=== PATIENT | female | born 1980 | race African-American/Black ===

== ENCOUNTER 2016-10-22 21:32 | Emergency (ER) | payer OTHER ==
[~2016-10-22] VITALS: Ht 160 cm; Wt 73.9 kg
[~2016-10-22 21:32] MED LIST: ATARAX,VISTARIL25 MG PO; TESSALON PERLE100 MG PO; TOPIRAMATE50 MG PO; TRAMADOL HCL50 MG PO; ULTRAM50 MG PO; VALTREX1000 MG PO; ZITHROMAX Z-PA250 MG PO; ZOFRAN4 MG PO
[2016-10-22 22:26] LABS: ADD MIUA? NO; BILIRUBIN NEGATIVE; BLOOD NEGATIVE; COLOR YELLOW ((YELLOW)); GLUCOSE (STRIP) NEGATIVE; KETONES NEGATIVE; LEUKOCYTES NEGATIVE; NITRITE NEGATIVE; PROTEIN (STRIP) NEGATIVE; SPECIFIC GRAVITY 1.019 (1.000-1.030); UCUL ADDED? NO; UROBILINOGEN 0.2 MG/DL (0.2-1.0)
[2016-10-22 22:28] LABS: HEMATOCRIT 35.7 % (36.0-46.0); MCH 28.1 PG (29.0-34.0); MCHC 31.9 G/DL (30.0-36.0); MCV 87.9 FL (83-99); MEAN PLAT.VOLUME 9.2 uM^3 (9.5-12.4); PLATELET COUNT 208 K/uL (156-360); RBC DIS.WIDTH-CV 12.4 % (11.8-14.6); RBC DIS.WIDTH-SD 39.4 % (39-53); RED BLOOD COUNT 4.06 M/uL (3.80-5.20); WHITE BLOOD COUNT 6.2 K/uL (4.1-10.2)
[2016-10-23 01:18] VITALS: BP 125/69
== END 2016-10-23 01:19 | disposition home or self-care (01) ==
LOC: EME 21:32
DX: O20.9 Hemorrhage in early pregnancy, unspecified (principal); Z3A.10 10 weeks gestation of pregnancy
CPT/HCPCS: 76801; 81003; 84702; 85027; 99281; 99284

== ENCOUNTER 2017-05-16 08:17 | Inpatient (IN) | payer OTHER ==
[~2017-05-16] VITALS: Ht 157.5 cm; Wt 85.9 kg
[2017-05-16] VITALS (15 sets, daily range): BP systolic 69–127; BP diastolic 36–78
[~2017-05-16 08:17] MED LIST changes: +IRON325 M1 PO; +PRENATAL TABLE1 EAC3 PO; +VENTOLIN HFA18 GM IH
[2017-05-17] MEDS ORDERED: IBUPROFEN800 MG PO (00:04)
[2017-05-17] MEDS ORDERED: ENDOCET 5-3251 EACH PO (00:04)
[2017-05-17] MEDS ORDERED: DOCUSATE SODIU100 MG PO (00:04)
[2017-05-17 02:00] VITALS: BP 128/67
[2017-05-17 05:53] VITALS: BP 111/58
[2017-05-17 07:00] VITALS: BP 111/55
[2017-05-17 07:00] LABS: BASOPHIL (%) 0.2 % (0-1); EOSINOPHIL (%) 0 % (0-5); HEMATOCRIT 27.9 % (36.0-46.0); IMMATURE GRANULOCYTE (%) 0.8 % (0.0-0.7); LYMPHOCYTE (%) 8.9 % (15-42); LYMPHOCYTE COUNT 0.9 K/uL (1.0-2.8); MCH 27.7 PG (29.0-34.0); MCHC 31.2 G/DL (30.0-36.0); MCV 88.9 FL (83-99); MONOCYTE (%) 7.5 % (3-12); MONOCYTE COUNT 0.8 K/uL (0-0.8); NEUTROPHIL (%) 82.6 % (45-76); NEUTROPHIL COUNT 8.5 K/uL (1.8-6.4); PLATELET COUNT 131 K/uL (156-360); RBC DIS.WIDTH-CV 13.8 % (11.8-14.6); RBC DIS.WIDTH-SD 44.1 % (39-53); WHITE BLOOD COUNT 10.3 K/uL (4.1-10.2)
[2017-05-17 07:04] LABS: HEMOGLOBIN 8.7 G/DL (11.9-15.5); RED BLOOD COUNT 3.14 M/uL (3.80-5.20)
[2017-05-17 09:00] VITALS: BP 116/55
[2017-05-17 10:56] VITALS: BP 98/56
[2017-05-17 15:24] VITALS: BP 111/58
[2017-05-18 07:21] VITALS: BP 123/70
[2017-05-18 11:41] VITALS: BP 123/59
[2017-05-18 14:56] VITALS: BP 117/67
[2017-05-18 19:19] VITALS: BP 115/55
[2017-05-18 23:26] VITALS: BP 136/71
[2017-05-19 22:29] VITALS: BP 105/65
[2017-05-20 07:45] VITALS: BP 123/70
== END 2017-05-20 14:53 | disposition home or self-care (01) | DRG 766 ==
LOC: 2WEST 08:17 → 2SOUTH 15:35 → 2WEST 05-20 14:53
PROVIDERS: Obstetrics & Gynecology
PROC: 3E033VJ Introduction of Other Hormone into Peripheral Vein, Percutaneous Approach (ICD-10-PCS; principal; 2017-05-16)
PROC: 10D00Z1 Extraction of Products of Conception, Low, Open Approach (ICD-10-PCS; principal; 2017-05-16)
PROC: 10S0XZZ Reposition Products of Conception, External Approach (ICD-10-PCS; principal; 2017-05-16)
PROC: 00HU33Z Insertion of Infusion Device into Spinal Canal, Percutaneous Approach (ICD-10-PCS; principal; 2017-05-16)
PROC: 3E0R3BZ Introduction of Anesthetic Agent into Spinal Canal, Percutaneous Approach (ICD-10-PCS; principal; 2017-05-16)
PROC: 10907ZC Drainage of Amniotic Fluid, Therapeutic from Products of Conception, Via Natural or Artificial Opening (ICD-10-PCS; principal; 2017-05-16)
DX: O64.1XX0 Obstructed labor due to breech presentation, not applicable or unspecified (principal); O69.0XX0 Labor and delivery complicated by prolapse of cord, not applicable or unspecified; O99.02 Anemia complicating childbirth; D56.3 Thalassemia minor; D64.9 Anemia, unspecified; Z3A.39 39 weeks gestation of pregnancy; Z37.0 Single live birth; Z87.891 Personal history of nicotine dependence; Z80.1 Family history of malignant neoplasm of trachea, bronchus and lung; Z82.0 Family history of epilepsy and other diseases of the nervous system; Z82.49 Family history of ischemic heart disease and other diseases of the circulatory system; Z82.5 Family history of asthma and other chronic lower respiratory diseases; Z83.3 Family history of diabetes mellitus
CPT/HCPCS: 36415; 85025; 85027; 86850; 86900; 86901; C1755; J0690; J1885; J2175; J2274; J2405; J2765; J3010; J3105; J7120

== ENCOUNTER 2017-05-31 04:00 | Emergency (ER) | payer OTHER ==
[~2017-05-31] VITALS: Ht 157.5 cm; Wt 79.7 kg
[~2017-05-31 04:00] MED LIST changes: +DOCUSATE SODIU100 MG PO; +ENDOCET 5-3251 EACH PO; +IBUPROFEN800 MG PO
[2017-05-31 04:36] LABS: APPEARANCE CLEAR ((CLEAR)); BILIRUBIN NEGATIVE; BLOOD SMALL; COLOR STRAW ((YELLOW)); GLUCOSE (STRIP) NEGATIVE; KETONES NEGATIVE; LEUKOCYTES NEGATIVE; NITRITE NEGATIVE; PROTEIN (STRIP) NEGATIVE; SPECIFIC GRAVITY 1.012 (1.000-1.030); UROBILINOGEN 0.2 MG/DL (0.2-1.0)
[2017-05-31 04:39] LABS: BACTERIA RARE /HPF; EPITHELIAL CELLS NONE SEEN /HPF; MUCUS TRACE /LPF; RED BLOOD CELLS 0-5 /HPF (0-5); UCUL ADDED? NO; WHITE BLOOD CELLS 0-5 /HPF (0-5)
[2017-05-31 04:42] LABS: HEMATOCRIT 34.1 % (36.0-46.0); MCH 28.2 PG (29.0-34.0); MCV 88.3 FL (83-99); RBC DIS.WIDTH-CV 12.8 % (11.8-14.6); RBC DIS.WIDTH-SD 40.9 % (39-53); WHITE BLOOD COUNT 3.4 K/uL (4.1-10.2)
[2017-05-31 04:44] LABS: HEMOGLOBIN 10.9 G/DL (11.9-15.5); PLATELET COUNT 216 K/uL (156-360); RED BLOOD COUNT 3.86 M/uL (3.80-5.20)
[2017-05-31 04:45] LABS: ALBUMIN 3.7 g/dL (3.2-4.8); CHLORIDE 107 mEq/L (99-109); POTASSIUM 3.7 mEq/L (3.7-5.4); SODIUM 142 mEq/L (136-147)
[2017-05-31 04:47] LABS: GLUCOSE 85 mg/dL (70-99); TOTAL PROTEIN 6.6 g/dL (6.4-8.3)
[2017-05-31 04:49] LABS: TOTAL BILIRUBIN 0.2 mg/dL (0.0-1.0)
[2017-05-31 04:51] LABS: ALKALINE PHOSPHATASE 76 IU/L (3-129); CREATININE 0.9 mg/dL (0.6-1.3); GFR ESTIMATE (CALCULATED) > 59 mL/min/
[2017-05-31 04:52] LABS: UREA NITROGEN (BUN) 11 mg/dL (9-23)
[2017-05-31 04:53] LABS: AST (GOT) 18 IU/L (2-34)
[2017-05-31 04:54] LABS: ALT (GPT) 23 IU/L (3-49)
[2017-05-31] MEDS ORDERED: KEFLEX500 MG PO (08:43)
[2017-05-31 08:58] VITALS: BP 140/78
== END 2017-05-31 09:05 | disposition home or self-care (01) ==
LOC: EME 04:00
DX: O90.0 Disruption of cesarean delivery wound (principal); J45.909 Unspecified asthma, uncomplicated; Z88.1 Allergy status to other antibiotic agents
CPT/HCPCS: 80053; 81003; 85027; 99281; 99284

== ENCOUNTER 2017-07-25 18:43 | Emergency (ER) | payer OTHER ==
[~2017-07-25] VITALS: Ht 157.5 cm; Wt 77.2 kg
[~2017-07-25 18:43] MED LIST changes: +KEFLEX500 MG PO
[2017-07-25] MEDS ORDERED: PERCOCET 5/31 TABLET PO (22:09)
[2017-07-25] MEDS ORDERED: LIDODERM 5% P1 PATCH TD (22:09)
[2017-07-25 23:26] VITALS: BP 123/78
== END 2017-07-25 23:26 | disposition home or self-care (01) ==
LOC: EME 18:43
DX: M54.12 Radiculopathy, cervical region (principal); J45.909 Unspecified asthma, uncomplicated
CPT/HCPCS: 73030; 99281; 99284; J1100